=== PATIENT | female | born 1940 | race Caucasian/White ===

== ENCOUNTER 2016-12-16 07:10 | Emergency (ER) | payer OTHER ==
--- NOTE | 2016-12-16 07:29 | CPEKG ---
Heart Rate: 96 RR Interval: 625 P-R Interval: 212 QRSD Interval: 92 QT Interval: 376 QTC Interval: 476 P Munising: 83 QRS Munising: -37 T Wave Mun[place]: 55 EKG Severity - ABNORMAL ECG - EKG Impression: SINUS RHYTHM EKG Impression: RIGHT ATRIAL ABNORMALITY EKG Impression: LEFT AXIS DEVIATION Electronically Signed By: Ernie Glass 16-Dec-2016 08:42:58
[2016-12-16] MEDS ORDERED: NS 1,000 ML IV ONE (07:41)
--- NOTE | 2016-12-16 07:57 | EDPHY ---
H & P Time Seen by Provider: 12/16/16 07:22 HPI/ROS: CHIEF COMPLAINT: I feel hot HISTORY OF PRESENT ILLNESS: Patient presents with symptoms which started yesterday morning. She feels hot and itchy and flush and symptoms are mild and persistent. Of note she was treated with mupirocin cream for boils in her nose 2 and half weeks ago which have improved. She has history of MRSA on her skin but no skin lesions today. No fever or chills. No change in urinary symptoms. No vomiting or diarrhea. No syncope. REVIEW OF SYSTEMS: Eye: no change in vision ENT: no sore throat, nose is improved Cardiac: no chest pain or syncope Pulmonary: no cough or SOB Abdomen: no vomiting, diarrhea, abdominal pain Musculoskeletal: no back pain Skin: She feels that maybe she is a little bit redder no skin but no welts or urticaria. Neuro: no headache Constitutional: no fever : no urinary symptoms A comprehensive 10 point review of systems is otherwise negative aside from elements mentioned in the history of present illness. PAST MEDICAL HISTORY: As in HPI. History of shingles. Social history: here with General Appearance: Alert and conversant, cooperative. Eyes: No scleral icterus. Nose appears normal without evidence of boils or skin lesions. Normal pharynx without angioedema. ENT, Mouth: Normal mucous membranes. Respiratory: Normal respiratory effort, breath sounds equal, lungs are clear to auscultation. No wheezing Cardiovascular: Regular rate and rhythm. Gastrointestinal: Abdomen is soft and non tender. Neurological: Alert and oriented x3. Normally conversant. Face symmetric, normal movement and sensation in all extremities. Skin: Warm and dry, no rashes. No Shingles, no urticaria, no cellulitis. Musculoskeletal: No peripheral edema and no joint swelling. Psychiatric: Not agitated. Emergency Department course/MDM: Symptoms suggestive of allergic phenomenon. Does not have airway involvement. I think systemic MRSA or bacteremia is unlikely. 0835: Heart rate 80, less itchy. White blood cell count noted is normal. Plan to treat as possible allergic, discontinue mupirocin, trial oral Benadryl next 48 hours. Smoking Status: Never smoked Constitutional: Initial Vital Signs Temperature (C) 36.3 C 12/16/16 07:14 Heart Rate 108 H 12/16/16 07:14 Respiratory Rate 20 12/16/16 07:14 Blood Pressure 146/65 H 12/16/16 07:14 O2 Sat (%) 96 12/16/16 07:14 O2 Delivery Mode Room Air O2 (L/minute) 0.5 Allergies/Adverse Reactions: Sulfa (Sulfonamide Antibiotics) Allergy (Verified 12/16/16 07:13) Home Medications: Medication Instructions Recorded Vitamins And Supplements 12/16/16 Medical Decision Making - Diagnostics EKG Interpretation: 12-lead EKG interpreted by me; official reading is in trace master. My interpretation is sinus rhythm with right atrial abnormality and left axis, normal intervals. Differential Diagnosis: Differential considered including but not limited to bacteremia, allergic phenomenon, renal failure, dehydration. - Data Points Laboratory Results: Laboratory Results 12/16/16 08:15 12/16/16 08:15 12/16/16 12/16/16 08:15 08:15 WBC 4.94 10^3/uL 10^3/uL (3.80-9.50) RBC 4.38 10^6/uL 10^6/uL (4.18-5.33) Hgb 14.5 g/dL g/dL (12.6-16.3) Hct 42.1 % % (38.0-47.0) MCV 96.1 fL fL (81.5-99.8) MCH 33.1 pg pg (27.9-34.1) MCHC 34.4 g/dL g/dL (32.4-36.7) RDW 14.4 % % (11.5-15.2) Plt Count 282 10^3/uL 10^3/uL (150-400) MPV 9.4 fL fL (8.7-11.7) Neut % (Auto) 54.9 % % (39.3-74.2) Lymph % (Auto) 32.4 % % (15.0-45.0) [place] % (Auto) 9.3 % % (4.5-13.0) Eos % (Auto) 2.0 % % (0.6-7.6) Baso % (Auto) 1.2 % % (0.3-1.7) Nucleat RBC Rel Count 0.0 % % (0.0-0.2) Absolute Neuts (auto) 2.71 10^3/uL 10^3/uL (1.70-6.50) Absolute Lymphs (auto) 1.60 10^3/uL 10^3/uL (1.00-3.00) Absolute Monos (auto) 0.46 10^3/uL 10^3/uL (0.30-0.80) Absolute Eos (auto) 0.10 10^3/uL 10^3/uL (0.03-0.40) Absolute Basos (auto) 0.06 10^3/uL 10^3/uL (0.02-0.10) Absolute Nucleated RBC 0.00 10^3/uL 10^3/uL (0-0.01) Immature Gran % 0.2 % % (0.0-1.1) Immature Gran # 0.01 10^3/uL 10^3/uL (0.00-0.10) Sodium 144 mEq/L mEq/L (134-144) Potassium 4.1 mEq/L mEq/L (3.5-5.2) Chloride 108 mEq/L mEq/L (97-110) Carbon Dioxide 23 mEq/l mEq/l (22-31) Anion Gap 13 mEq/L mEq/L (8-16) BUN 16 mg/dL mg/dL (7-23) Creatinine 0.8 mg/dL mg/dL (0.6-1.0) Estimated GFR > 60 Glucose 86 mg/dL mg/dL (70-100) Calcium 10.1 mg/dL mg/dL (8.5-10.4) Medications Given: Discontinued Medications Diphenhydramine HCl (Benadryl Injection) 50 mg IVP EDNOW ONE Stop: 12/16/16 07:42 Last Admin: 12/16/16 08:18 Dose: 50 mg Sodium Chloride (Ns) 1,000 mls @ 0 mls/hr IV ONCE ONE PRN Reason: Wide Open Stop: 12/16/16 07:42 Last Admin: 12/16/16 08:18 Dose: 1,000 mls Departure - Departure Disposition: Home, Routine, Self-Care Clinical Impression: Generalized pruritus, possible allergic reaction Condition: Good Instructions: Itchy Skin (ED) Additional Instructions: Try using oral Benadryl 50 mg every 8 hours as needed. Return for trouble breathing, dizziness or fainting, trouble swallowing or facial swelling. Referrals: Chaya Carreno MD [Primary Care Provider] - As per Instructions
[2016-12-16 08:21] VITALS: O2SAT 97
[2016-12-16 08:25] LABS: % IMMATURE GRANULYOCYTES 0.2 % (0.0-1.1); ABSOLUTE IMMATURE GRANULOCYTES 0.01 10^3/uL (0.00-0.10); ADD DIFF? NO; ADD MORPH? NO; ADD SCAN? NO; ATYPICAL LYMPHOCYTE FLAG 30 (0-99); FRAGMENT RBC FLAG 0 (0-99); HEMATOCRIT 42.1 % (38.0-47.0); HEMOGLOBIN 14.5 g/dL (12.6-16.3); LEFT SHIFT FLG 0 (0-99); LIPEMIA HEMOLYSIS FLAG 90 (0-99); MEAN CELL HEMOGLOBIN 33.1 pg (27.9-34.1); MEAN CELL HEMOGLOBIN CONCENTR. 34.4 g/dL (32.4-36.7); MEAN CELL VOLUME 96.1 fL (81.5-99.8); MEAN PLATELET VOLUME 9.4 fL (8.7-11.7); PLATELET CLUMPS FLAG 0 (0-99); PLATELET COUNT 282 10^3/uL (150-400); RED BLOOD CELL COUNT 4.38 10^6/uL (4.18-5.33); RED CELL DISTRIBUTION WIDTH 14.4 % (11.5-15.2)
[2016-12-16 08:43] LABS: ANION GAP 13 mEq/L (8-16); CALCIUM 10.1 mg/dL (8.5-10.4); CARBON DIOXIDE 23 mEq/l (22-31); CHLORIDE 108 mEq/L (97-110); CREATININE 0.8 mg/dL (0.6-1.0); GLOMERULAR FILTRATION RATE > 60; GLUCOSE 86 mg/dL (70-100); POTASSIUM 4.1 mEq/L (3.5-5.2); SODIUM 144 mEq/L (134-144)
[2016-12-16 08:52] VITALS: BP 132/78; PULSE 78; RESP 14; TEMP 98.8
== END 2016-12-16 08:51 | disposition home or self-care (01) ==
DX: L29.9 Pruritus, unspecified (principal)
CPT/HCPCS: 93005; 96361; 96374; 99284; J1200

== ENCOUNTER 2017-01-05 11:06 | Emergency (ER) | payer OTHER ==
[2017-01-05 11:41] VITALS: O2SAT 95
[2017-01-05] MEDS ORDERED: FAMOTIDINE 20 MG TAB PO ONE (12:14)
--- NOTE | 2017-01-05 12:14 | EDPHY ---
H & P Time Seen by Provider: 01/05/17 11:36 HPI/ROS: CHIEF COMPLAINT: Itchy skin HISTORY OF PRESENT ILLNESS: 76-year-old female presents to the emergency department by private vehicle complaining of itchy skin. The patient states that for o'clock this morning she woke up and she fell itching to her scalp and to upper lower extremities. She felt like her face felt flushed and was read. She had no treatment at home. She states that it has mostly resolved although she continues to complain of itching especially to her scalp in her upper extremities. She was seen in the emergency department 3 weeks ago with similar symptoms. She was treated with IV Benadryl and her symptoms completely resolved. Patient is concerned because she does not know what is causing the itchiness. She does state that she was treated for an infection in her nose that was positive for MRSA. She treated this with topical Bactroban ointment and her symptoms have resolved. Her last use of this appointment was for 5 days ago. She denies chest pain or difficulty breathing. Denies abdominal pain or feeling nauseous. Denies headache. REVIEW OF SYSTEMS: Constitutional: No fever, no chills. Eyes: No double or blurry vision. ENT: No sore throat. Respiratory: No cough, no shortness of breath. Cardiac: No chest pain. Gastrointestinal: No abdominal pain, vomiting or diarrhea. Genitourinary: No dysuria. Musculoskeletal: No neck or back pain. Skin: Itchy rash Neurological: No headache. Past Medical/Surgical History: MRSA, zoster Social History: Smoking Status: Never smoked Physical Exam: General Appearance: Alert, no distress. Seems a bit anxious. Eyes: Pupils equal and round. Extraocular motions are all intact. ENT: Mouth: Mucous membranes moist. Respiratory: No wheezing, rhonchi, or rales, lungs are clear to auscultation. Cardiovascular: Regular rate and rhythm. Gastrointestinal: Abdomen is soft and nontender, no masses, no rebound or guarding, bowel sounds normal. Neurological: Alert and oriented x 3, cranial nerves II through XII grossly intact Skin: Face does not appear red or flushed. Warm and dry, no rashes. Musculoskeletal: Nontender to palpate along the cervical, thoracic or lumbar spine. Neck is supple. Extremities: Full range of motion and no peripheral edema. Psychiatric: Patient is oriented X 3, there is no agitation. Constitutional: Initial Vital Signs Temperature (C) 36.4 C 01/05/17 11:29 Heart Rate 98 01/05/17 11:29 Respiratory Rate 18 01/05/17 11:29 Blood Pressure 173/88 H 01/05/17 11:29 O2 Sat (%) 95 01/05/17 11:29 O2 Delivery Mode Room Air Allergies/Adverse Reactions: Sulfa (Sulfonamide Antibiotics) Allergy (Verified 12/16/16 07:13) Home Medications: Medication Instructions Recorded Vitamins And Supplements 12/16/16 Doxycycline Calcium 01/05/17 Mupirocin 01/05/17 Medical Decision Making ED Course/Re-evaluation: 76-year-old female presents to the emergency department with feelings of itchy skin. The patient was seen in the emergency department 3 weeks ago with similar symptoms improved after IV Benadryl. The patient denies any chest pain , difficulty breathing or dysphagia. I do not appreciate an obvious rash. I did discuss possible niacin flush with the patient although she states that she does not take niacin and her has experienced a niacin flush before and she feels that this is different. I reassured the patient that I do not think that she has any signs of systemic infection. I did not give the patient oral Benadryl in the emergency department because she was driving herself home. She was given oral Pepcid for the itching. I do not think prednisone is indicated. I did give her an manager equipment to the [facility] for referral if she has recurring symptoms. I also encouraged her return if she developed difficulty breathing, difficulty swallowing, or any other concerns. Differential Diagnosis: Including but not limited to allergic reaction, pruritic rash, cellulitis, niacin flush, anxiety - Data Points Medications Given: Discontinued Medications Famotidine (Pepcid) 20 mg PO EDNOW ONE Stop: 01/05/17 12:15 Last Admin: 01/05/17 12:25 Dose: 20 mg Departure - Departure Disposition: Home, Routine, Self-Care Clinical Impression: Itchy skin Condition: Good Instructions: Itchy Skin (ED) Additional Instructions: Benadryl 25-50mg every 8 hours for itching, caution drowsiness. Return if you have any difficulty breathing, difficulty swallowing, visible rash, or if you feel worse in any way. Your given Pepcid 20 mg orally in the emergency department. You may continue this once daily until itchiness and rash has resolved. Referrals: Chaya Carreno MD [Primary Care Provider] - As per Instructions Luisa Gustafson MD [[facility] [place] Primary Care Provider] - As per Instructions (Reservation Manager at [facility])
[2017-01-05 13:11] VITALS: BP 130/74; PULSE 82; RESP 16; TEMP 98.2
== END 2017-01-05 13:11 | disposition home or self-care (01) ==
DX: L29.9 Pruritus, unspecified (principal)

== ENCOUNTER → 2017-01-25 | Outpatient (CLI) | payer OTHER | LOC: BMCIMAGING 10:35 | PROVIDERS: ATTEND Allergy & Immunology Allergy | DX: T78.40XA Allergy, unspecified, initial encounter (principal) ==

== ENCOUNTER → 2017-02-15 | Outpatient (CLI) | payer OTHER | LOC: FIMAGING 15:16 | PROVIDERS: ATTEND Internal Medicine | DX: H93.12 Tinnitus, left ear (principal); H54.7 Unspecified visual loss ==

== ENCOUNTER → 2017-02-18 | Outpatient (CLI) | payer OTHER | LOC: BMCIMAGING 10:00 | PROVIDERS: ATTEND Internal Medicine | DX: Z13.820 Encounter for screening for osteoporosis (principal); M85.80 Other specified disorders of bone density and structure, unspecified site; Z78.0 Asymptomatic menopausal state ==

== ENCOUNTER → 2017-05-03 | Outpatient (CLI) | payer OTHER | LOC: BMCIMAGING 12:24 | PROVIDERS: ATTEND Allergy & Immunology Allergy | DX: Z13.6 Encounter for screening for cardiovascular disorders (principal) ==

== ENCOUNTER → 2017-06-11 | Outpatient (CLI) | payer OTHER ==
[~2017-06-11] MED LIST: IOPAMIDOL (ISOVUE-300) 100 ML BTL ONE
== END ==
LOC: FIMAGING 07:21
PROVIDERS: ATTEND Allergy & Immunology Allergy
DX: R91.1 Solitary pulmonary nodule (principal); R91.8 Other nonspecific abnormal finding of lung field; R22.1 Localized swelling, mass and lump, neck; I87.2 Venous insufficiency (chronic) (peripheral)
CPT/HCPCS: 71260; 74177; 76536; Q9967

== ENCOUNTER → 2017-06-30 | Outpatient (CLI) | payer OTHER | LOC: FIMAGING 13:52 | PROVIDERS: ATTEND Internal Medicine | DX: H93.12 Tinnitus, left ear (principal); M47.892 Other spondylosis, cervical region; M50.30 Other cervical disc degeneration, unspecified cervical region; M12.88 Other specific arthropathies, not elsewhere classified, other specified site; M48.02 Spinal stenosis, cervical region; M99.71 Connective tissue and disc stenosis of intervertebral foramina of cervical region | CPT/HCPCS: 70491; Q9967 ==

== ENCOUNTER → 2017-07-11 | Outpatient (CLI) | payer OTHER | LOC: FIMAGING 07:22 | PROVIDERS: ATTEND Internal Medicine | DX: M51.36 Other intervertebral disc degeneration, lumbar region (principal); M48.061 Spinal stenosis, lumbar region without neurogenic claudication; M99.73 Connective tissue and disc stenosis of intervertebral foramina of lumbar region ==

== ENCOUNTER → 2017-07-16 | Outpatient (CLI) | payer OTHER | LOC: FIMAGING 07:09 | PROVIDERS: ATTEND Internal Medicine | DX: Z13.9 Encounter for screening, unspecified (principal) ==

== ENCOUNTER → 2017-08-17 | Outpatient (CLI) | payer OTHER | LOC: FIMAGING 12:57 | PROVIDERS: ATTEND Neurological Surgery | DX: Z01.818 Encounter for other preprocedural examination (principal) ==

== ENCOUNTER → 2017-10-13 | Outpatient (CLI) | payer OTHER | LOC: BMCIMAGING 11:52 | PROVIDERS: ATTEND Internal Medicine | DX: R07.9 Chest pain, unspecified (principal); R91.8 Other nonspecific abnormal finding of lung field ==

== ENCOUNTER → 2017-10-26 | Outpatient (CLI) | payer OTHER | LOC: FIMAGING 07:40 | PROVIDERS: ATTEND Internal Medicine | DX: R91.8 Other nonspecific abnormal finding of lung field (principal) ==

== ENCOUNTER 2017-11-20 07:23 | Emergency (ER) | payer OTHER ==
[2017-11-20 07:32] VITALS: BP 156/101; PULSE 96; RESP 17; TEMP 97.3; O2SAT 97
--- NOTE | 2017-11-20 08:10 | EDPHY ---
H & P Stated Complaint: ? 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 Patient complaining of 1 year of itching, rash for which she follows Maira Gustafson which she soft recently 2 days ago as she notes that the symptoms have been waxing waning for the past 5 days, notably she will feel intermittently flushed not currently in the emergency department. She is in the ER stating that she would like to feel better and no why she is having the symptoms. It was recommended by Dr. Luisa Gustafson her office visit 2 days ago that she stop her citalopram, was given a new prednisone regimen as well as Benadryl 50 mg every 8 hr, Zyrtec 10 mg in the morning and will proceed with allergy testing in 2 weeks. The patient notes new cracking of her lower lip but denies intraoral lesions. She notes ongoing irritation to her external labia without lesions, without urinary abnormality. She denies GI complaints such as diarrhea, denies vomiting , denies ocular irritation. REVIEW OF SYSTEMS: A ten point review of systems was performed and is negative with the exception of the items mentioned in the HPI PAST MEDICAL & SURGICAL HISTORY: No pertinent medical or surgical history SOCIAL HISTORY: PHYSICAL EXAM (Prior to examination, patient consented to physical exam, hands were washed and my usual and customary physical exam procedures followed) 1) GENERAL: [Well-developed, well-nourished, alert and oriented. Appears to be in no acute distress. Answering question appropriately 2) HEAD: Normocephalic, atraumatic 3) HEENT: Pupils equal, round, reactive to light bilaterally. Sclera anicteric. [Nasopharynx clear. Oropharynx: Fissures of the lower lip with no lesions. No tonsillar enlargement or exudate 4) NECK: Full range of motion, no meningeal signs. 5) LUNGS: Clear auscultation bilaterally, no wheezes, no rhonchi, no retractions. 6) HEART: Regular rate and rhythm, no murmur, no heave, no gallop. 7) ABDOMEN: No guarding, no rebound, no focal tenderness, negative McBurney's, negative Lynch's, negative Rovsing's, negative peritoneal sign, 8) MUSCULOSKELETAL: Moving all extremities, no focal areas of tenderness, no obvious trauma. No peripheral edema or discoloration. 9) BACK: No CVA tenderness, no midline vertebral tenderness, no fluctuance, no step-off, no obvious trauma, no visual or palpable abnormality. 10) SKIN: Mild flat erythema to her bilateral cheeks with no vesicles, no tenderness, not consistent with cellulitis. 11) Psychiatric: Patient is oriented X 3, there is no agitation. 12) (with nurse Tameka at bedside): No lesions, no erythema, no signs of infection DIFFERENTIAL DIAGNOSIS: In no particular include but limited to urticaria, Cruz-Kevin syndrome, anaphylaxis - Personal History Current Tetanus/Diphtheria Vaccine: Yes - Medical/Surgical History Hx Asthma: No Hx Chronic Respiratory Disease: No Hx Diabetes: No Hx Cardiac Disease: No Hx Renal Disease: No Hx Cirrhosis: No Hx Alcoholism: No Hx HIV/AIDS: No Hx Splenectomy or Spleen Trauma: No Other PMH: PMH: MRSA 2x, shingles,. PSH: denies - Social History Smoking Status: Never smoked Constitutional: Initial Vital Signs Temperature (C) 36.3 C 11/20/17 07:29 Heart Rate 96 11/20/17 07:29 Respiratory Rate 17 11/20/17 07:29 Blood Pressure 156/101 H 11/20/17 07:29 O2 Sat (%) 97 11/20/17 07:29 O2 Delivery Mode Room Air Allergies/Adverse Reactions: Sulfa (Sulfonamide Antibiotics) Allergy (Verified 11/20/17 07:28) Contrast media Allergy (Uncoded 07/01/17 18:57) Home Medications: Medication Instructions Recorded Prednisone 11/20/17 ZYRTEC 11/20/17 Medical Decision Making ED Course/Re-evaluation: This was re-evaluated with serial examinations and case discussed with secondary supervising physician Dr. Ernie Glass in the emergency department. Old records were reviewed including most recent notes from Dr. Luisa Gustafson which patient brought with her from her last office visit 2 days ago. The patient has expressed her frustration at her ongoing symptoms for the past several months to 1 year and I empathized with this. She was concerned about irritation and fissuring of her lower lip, she expressed her concern over possible MRSA noting a cutaneous MRSA history in the past. The fissuring of the lower lip is not consistent with cutaneous MRSA or infectious etiology.. I do not think that topical or oral antibiotics are currently indicated. I have recommended topical moisturizer to this area and avoid leaking or picking at the area. She has no intraoral lesions. She also noted ongoing irritation to her labia which on examination reveal no lesions, no evidence of cellulitis. I think that Cruz-Kevin syndrome is less likely in this patient at this time. Doubt anaphylaxis. She is currently compliant with her medication regimen of H1 H2 blockers as well as prednisone as directed by Dr. Luisa Gustafson and I recommend she continue this. Doubt anaphylaxis. After a lengthy discussion with the patient patient with her nurse Tameka at bedside the patient was tearful and expressed her dissatisfaction with not receiving a clinical diagnosis or a "cure". I empathized with her chronic condition. Informed the patient that I do not think that emergent diagnostic studies or intervention is indicated but recommend she continue with her follow- up with Dr. Luisa Gustafson. Patient walked out without receiving aftercare instructions. Departure - Departure Disposition: Home, Routine, Self-Care Clinical Impression: Rash, Itching Condition: Good Instructions: Itchy Skin (ED) Additional Instructions: Return to emergency department if you develop respiratory complaints such as shortness of breath. Return to the ER if you develop chest pain, difficulty swallowing, worsening rash or other symptoms that concern you. Referrals: Luisa Gustafson MD [[facility] [place] Provider] - 11/23/17
== END 2017-11-20 08:40 | disposition home or self-care (01) ==
DX: R21 Rash and other nonspecific skin eruption (principal); L29.9 Pruritus, unspecified

== ENCOUNTER → 2017-11-23 | Outpatient (CLI) | payer OTHER ==
[~2017-11-23] MED LIST changes: +GADOBUTROL 10 ML VIAL IVP ONE; -IOPAMIDOL (ISOVUE-300) 100 ML BTL ONE
== END ==
LOC: FIMAGING 09:28
PROVIDERS: ATTEND Internal Medicine
DX: R93.0 Abnormal findings on diagnostic imaging of skull and head, not elsewhere classified (principal); R51 Headache; R20.2 Paresthesia of skin; R25.1 Tremor, unspecified; R29.2 Abnormal reflex
CPT/HCPCS: 70553; A9585

== ENCOUNTER 2017-12-11 06:09 | Observation (INO) | payer OTHER ==
--- NOTE | 2017-12-11 06:21 | CPEKG ---
Heart Rate: 86 RR Interval: 698 P-R Interval: 184 QRSD Interval: 90 QT Interval: 392 QTC Interval: 469 P Andrews: 83 QRS Andrews: -65 T Wave Andrews: 66 EKG Severity - ABNORMAL ECG - EKG Impression: SINUS RHYTHM EKG Impression: RIGHT ATRIAL ABNORMALITY EKG Impression: MARKEDLY POSTERIOR QRS AXIS EKG Impression: BORDERLINE T ABNORMALITIES, ANT-LAT LEADS Electronically Signed By: Ernie Glass 11-Dec-2017 07:40:24
[2017-12-11] MEDS ORDERED: ASPIRIN 81 MG CHEWABLE TAB PO ONE (06:25)
[2017-12-11] MEDS ORDERED: ASPIRIN 81 MG CHEWABLE TAB ONE (06:26)
[2017-12-11 06:32] LABS: PLATELET COUNT 271 10^3/uL (150-400)
--- NOTE | 2017-12-11 06:38 | EDPHY ---
H & P Stated Complaint: Sleep apnea, chest pain Time Seen by Provider: 12/11/17 06:16 HPI/ROS: HPI The patient presents brought in from home for chest pain which began at about 4: 30 a.m.. She was lying in bed and believes that the pain woke her up. She was in her left chest, felt like a pressure sensation, was moderate in severity and was associated with mild dizziness. It lasted for about 1 hr and then improved while she was driving into emergency department she leaves. She has no prior history of similar pain. She has had occasional shortness of breath at night. She had a sleep study performed about 1 week ago which demonstrated sleep apnea. She is awaiting a CPAP machine. She took a flight from [place] to [place] 4 days ago. She has a leg swelling. She had a cardiac stress test about 2 years ago which was normal. REVIEW OF SYSTEMS Constitutional: No fever, no chills. Eyes: No discharge. ENT: No sore throat. Cardiovascular: Positive for chest pain, no palpitations. Respiratory: No cough, no shortness of breath. Gastrointestinal: No abdominal pain, no vomiting. Genitourinary: No hematuria. Musculoskeletal: No back pain. Skin: No rashes. Neurological: No headache. PMHx: Newly diagnosed obstructive sleep apnea Soc Hx: Lives at home with her FHx: PHYSICAL General Appearance: Alert, no distress Eyes: Pupils equal and round no pallor or injection ENT, Mouth: Mucous membranes moist Respiratory: There are no retractions, lungs are clear to auscultation Cardiovascular: Regular rate and rhythm Gastrointestinal: Abdomen is soft and non-tender, no masses, bowel sounds normal Neurological: A&O, moves all extremities Skin: Warm and dry, no rashes Musculoskeletal: Neck is supple non tender Extremities: symmetrical, full range of motion Psychiatric: Patient is oriented X 3, there is no agitation Source: Patient Exam Limitations: No limitations - Personal History Current Tetanus Diphtheria and Acellular Pertussis (TDAP): Yes - Medical/Surgical History Hx Asthma: No Hx Chronic Respiratory Disease: No Hx Diabetes: No Hx Cardiac Disease: No Hx Renal Disease: No Hx Cirrhosis: No Hx Alcoholism: No Hx HIV/AIDS: No Hx Splenectomy or Spleen Trauma: No Other PMH: PMH: MRSA 2x, shingles,. PSH: denies - Social History Smoking Status: Never smoked Constitutional: Initial Vital Signs Temperature (C) 36.4 C 12/11/17 06:14 Heart Rate 88 12/11/17 06:14 Respiratory Rate 18 12/11/17 06:14 Blood Pressure 164/81 H 12/11/17 06:14 O2 Sat (%) 99 12/11/17 06:14 O2 Delivery Mode Room Air Allergies/Adverse Reactions: Sulfa (Sulfonamide Antibiotics) Allergy (Verified 12/11/17 06:10) Contrast media Allergy (Uncoded 12/11/17 06:10) Home Medications: Medication Instructions Recorded Prednisone 11/20/17 ZYRTEC 11/20/17 Medical Decision Making - Diagnostics EKG Interpretation: EKG: Complete interpretation has been separately recorded in the [email or web address] archive. Summary impression: Normal sinus rhythm with left axis deviation, T- wave inversion in aVL, V2, unchanged from prior EKG Differential Diagnosis: 77-year-old female, recently diagnosed with obstructive sleep apnea, awoke with chest pain this morning at 4:30 a.m., pressure like nature associated with dizziness. On exam, slightly hypertensive, otherwise vital signs are normal. Differential diagnosis includes ACS, pulmonary hypertension causing chest pain, pulmonary embolism, GERD. Emergency department much in received abdomen 324 mg. EKG was unchanged from old EKG from 1 year ago. Patient's HEART score calculated at 4. I do feel she should be admitted. Her labs thus far unremarkable. D-dimer is elevated, however adjusting for age this is the norm limits. I have discussed the case with Dr. Delvalle the hospitalist and we will admit the patient for monitoring. - Data Points Laboratory Results: Laboratory Results 12/11/17 06:29 12/11/17 06:29 12/11/17 12/11/17 12/11/17 06:30 06:29 06:29 WBC 4.89 10^3/uL 10^3/uL (3.80-9.50) RBC 4.48 10^6/uL 10^6/uL (4.18-5.33) Hgb 14.6 g/dL g/dL (12.6-16.3) Hct 42.7 % % (38.0-47.0) MCV 95.3 fL fL (81.5-99.8) MCH 32.6 pg pg (27.9-34.1) MCHC 34.2 g/dL g/dL (32.4-36.7) RDW 14.6 % % (11.5-15.2) Plt Count 271 10^3/uL 10^3/uL (150-400) MPV 9.4 fL fL (8.7-11.7) Neut % (Auto) 46.3 % % (39.3-74.2) Lymph % (Auto) 40.5 % % (15.0-45.0) [place] % (Auto) 10.0 % % (4.5-13.0) Eos % (Auto) 2.2 % % (0.6-7.6) Baso % (Auto) 0.8 % % (0.3-1.7) Nucleat RBC Rel Count 0.0 % % (0.0-0.2) Absolute Neuts (auto) 2.26 10^3/uL 10^3/uL (1.70-6.50) Absolute Lymphs (auto) 1.98 10^3/uL 10^3/uL (1.00-3.00) Absolute Monos (auto) 0.49 10^3/uL 10^3/uL (0.30-0.80) Absolute Eos (auto) 0.11 10^3/uL 10^3/uL (0.03-0.40) Absolute Basos (auto) 0.04 10^3/uL 10^3/uL (0.02-0.10) Absolute Nucleated RBC 0.00 10^3/uL 10^3/uL (0-0.01) Immature Gran % 0.2 % % (0.0-1.1) Immature Gran # 0.01 10^3/uL 10^3/uL (0.00-0.10) D-Dimer 0.60 ug/mLFEU H ug/mLFEU (0.00-0.50) Sodium 146 mEq/L H mEq/L (135-145) Potassium 4.0 mEq/L mEq/L (3.5-5.2) Chloride 111 mEq/L H mEq/L (97-110) Carbon Dioxide 27 mEq/l mEq/l (22-31) Anion Gap 8 mEq/L mEq/L (8-16) BUN 17 mg/dL mg/dL (7-23) Creatinine 0.8 mg/dL mg/dL (0.6-1.0) Estimated GFR > 60 Glucose 88 mg/dL mg/dL (70-100) Calcium 10.1 mg/dL mg/dL (8.5-10.4) Troponin I < 0.012 ng/mL ng/mL (0.000-0.034) Medications Given: Discontinued Medications Aspirin (Aspirin) 324 mg PO EDNOW ONE Stop: 12/11/17 06:26 Last Admin: 12/11/17 06:26 Dose: 324 mg Departure - Departure Referrals: Chaya Carreno MD [Primary Care Provider] - As per Instructions
[2017-12-11 08:23] VITALS: O2SAT 97
[2017-12-11] MEDS ORDERED: ACETAMINOPHEN 325 MG TAB PO PRN (08:46)
[2017-12-11] MEDS ORDERED: ONDANSETRON 4 MG/2 ML VIAL IVP PRN (08:46)
[2017-12-11] MEDS ORDERED: ONDANSETRON DISINTEGRATING 4 MG TAB PO PRN (08:46)
[2017-12-11 10:59] VITALS: BP 110/54; PULSE 82; RESP 12; TEMP 97.9
--- NOTE | 2017-12-11 14:29 | ASMTLACE ---
LACE Length of stay for Answers: Less than 1 day current admission Acuity / Level of Answers: No Care: Did the patient have an inpatient admission? # of Emergency department Answers: 1-2 visits in the last 6 months Score: 1 Date Signed: 12/11/2017 02:28 PM Electronically Signed By:Cassia Matos RN
--- NOTE | 2017-12-11 14:30 | ASMTCMCOM ---
CM Note CM Note Notes: Patient discussed with RN. Likely to dc later this PM. No needs identified at present. Date Signed: 12/11/2017 02:30 PM Electronically Signed By:Cassia Matos RN
--- NOTE | 2017-12-11 14:37 | GHP ---
[f rep st] HISTORY AND PHYSICAL DATE OF ADMISSION: 12/11/2017 CHIEF COMPLAINT: Chest pain. HISTORY OF PRESENT ILLNESS: This is a 77-year-old female with no cardiac risk factors, who woke up t his morning with chest pain. She does not say it was pressure, but more of a pain. Not associated w ith shortness of breath or diaphoresis. It resolved by the time she came to the emergency department . It did last about an hour. Did have some dizziness. She has been admitted to the floor and has h ad no pain since. The patient recently came back from [facility], where she was diagnosed with significant sleep apnea . At the clinic, her nighttime sats would go down to 77%. She is still awaiting her CPAP machine an d has not been using it. Patient admits to significant anxiety recently and stress. REVIEW OF SYSTEMS: A 10-point review of systems was obtained and was negative. PAST MEDICAL HISTORY: Obstructive sleep apnea. MEDICATIONS: None. SOCIAL HISTORY: No smoking or alcohol. Lives with her . FAMILY HISTORY: No cardiac disease. PHYSICAL EXAMINATION: VITAL SIGNS: Afebrile. Blood pressure is 110/54, heart rate 82, oxygen satur ation 95% on room air. GENERAL: The patient is well-developed, no apparent distress. HEENT: Nonic teric sclerae. Extraocular movements intact. Moist mucous membranes. NECK: Supple. No thyromegal y. LUNGS: Good effort. Clear to auscultation bilaterally. CARDIOVASCULAR: Regular rate and rhyth m. No murmurs or gallops. ABDOMEN: Positive bowel sounds. Soft, nontender, nondistended. No hepa tosplenomegaly. EXTREMITIES: No clubbing, cyanosis or edema. SKIN: Without rash. Warm, intact. NEUROLOGIC: Alert and oriented x3. Moving all 4 extremities equally. PSYCHIATRIC: Normal affect. LABS: CBC is normal. D-dimer slightly high at 0.6, but it is normal for her age. Chemistry is esse ntially normal. Troponins have been negative x2. EKG, personally reviewed and interpreted, shows some slight T-wave flattening in the anterior leads, but no ischemia. Chest x-ray, personally reviewed and interpreted, is negative. ASSESSMENT: A 77-year-old female presenting with no cardiac risk factors and atypical chest pain. Atypical chest pain: Troponins are negative times 2. Pain could very well be due to her untreated o bstructive sleep apnea. Fortunately though, her CPAP machine has arrived today, and she will be able to use that tonight. Her troponins are negative, and she does have minimal risk factors with atypic al pain. I think it is reasonable to discharge her with instructions to get stress test outpatient t his week. /[id number]/MODL
== END 2017-12-11 14:55 | disposition home or self-care (01) ==
LOC: F2W 08:19
PROVIDERS: ADMIT Family Medicine; ATTEND Internal Medicine
DX: R07.9 Chest pain, unspecified (principal); G47.33 Obstructive sleep apnea (adult) (pediatric); Z86.14 Personal history of Methicillin resistant Staphylococcus aureus infection; Z88.2 Allergy status to sulfonamides
CPT/HCPCS: 71045; 93005; G0378

== ENCOUNTER 2018-01-16 06:51 | Emergency (ER) | payer OTHER ==
[2018-01-16] MEDS ORDERED: IPRATROPIUM/ALBUTEROL 3 ML DEYVIAL IH ONE (07:25)
--- NOTE | 2018-01-16 07:30 | EDPHY ---
H & P Time Seen by Provider: 01/16/18 07:20 HPI/ROS: CHIEF COMPLAINT: Cough HISTORY OF PRESENT ILLNESS: Patient is a 77-year-old female who presents emergency department with 7-8 days of cold and cough. Patient returned home yesterday after 30 day trip abroad. She was in [place], [place], [place] and [place]. Her condition worsened after her extended travel day home. Her symptoms started with a head cold and congestion. She developed a cough that is worsened. It is productive of green sputum. She feels mildly short of breath. She has had no fevers or chills. She denies any chest pain. No abdominal pain. No nausea, vomiting or diarrhea. The patient took a Z-Steven 5 days ago in this completed the entire course. Condition is not changed. She brought these medications with her on the trip. REVIEW OF SYSTEMS: My complete review of systems is negative except as mentioned in the HPI. Past Medical/Surgical History: Includes shingles, obstructive sleep apnea, MRI say Past surgical history: See 3 surgery Social history: The patient is Smoking Status: Never smoked Physical Exam: Vitals noted GENERAL: No acute distress, alert. Occasional cough HEENT: Eyes normal to inspection, normal pharynx, no signs of dehydration. Normal NECK: No thyromegaly, no lymphadenopathy, supple. RESPIRATORY: Clear to auscultation bilaterally, no rales, rhonchi. Subtle wheeze in the upper lobes bilaterally. CVS: Regular rate and rhythm, no rubs, murmurs, or gallops. ABDOMEN: Soft, nontender, nondistended, no organomegaly. BACK: Normal to inspection, no CVA tenderness. SKIN: Normal color, no rash, warm, dry. No pallor. EXTREMITIES: No pedal edema, no calf tenderness, no Homans sign or cords, no joint swelling. NEURO/PSYCH: Alert and oriented x3, normal mood and affect, normal motor sensory exam. No obvious cranial nerve deficit. Constitutional: Initial Vital Signs Temperature (C) 36.8 C 01/16/18 06:54 Heart Rate 92 01/16/18 06:54 Respiratory Rate 18 01/16/18 06:54 Blood Pressure 165/76 H 01/16/18 06:54 O2 Sat (%) 96 01/16/18 06:54 O2 Delivery Mode Room Air Allergies/Adverse Reactions: cyanocobalamin (vitamin B12) Allergy (Unknown, Verified 01/16/18 06:54) Hives bacitracin Allergy (Verified 01/16/18 06:54) Sulfa (Sulfonamide Antibiotics) Allergy (Verified 01/16/18 06:54) Contrast media Allergy (Uncoded 01/16/18 06:54) Home Medications: Medication Instructions Recorded Albuterol [Proventil Inhaler HFA 1 - 2 puffs IH Q4H #1 mdi 01/16/18 (*)] predniSONE 20 mg PO DAILY 4 Days tab 01/16/18 Medical Decision Making - Diagnostics Imaging Results: Imaging Impressions Chest X-Ray 01/16/18 07:26 Impression: Stable exam, compared to previous studies in October and December, with no new focal infiltrate. ED Course/Re-evaluation: In the emergency department I discussed possible etiologies with the patient. I answered all her questions. IV was placed. Laboratory studies, EKG and chest x-ray were ordered. Patient was given a DuoNeb for the wheezing on exam Patient states she felt better after receiving the DuoNeb. On recheck she had no wheezing. The sinus rhythm at 73. Left axis deviation. A premature atrial complex. Patient's laboratory studies were unremarkable. White count is normal. Rest of her CBC was normal. Chemistry panel is normal. Lactic acid is negative. D- dimer is negative. Troponin is negative. Patient was given Solu-Medrol 125 mg IV. This was given due to her persistent reported cough and her improvement after receiving the nebulizer. Chest x-ray: Please refer the dictated report. Her x-ray is stable. No focal infiltrate. I am awaiting the Respiratory panel screen. I went rechecked the patient. She states she is feeling better. Patient will be discharged at this point. She will be given a prescription of steroids as well as an inhaler. She is aware that the Respiratory panel is still pending. She will follow up with the primary care physician this week. She was given warnings prior to leaving. She will return with worsening symptoms. Patient took an entire course of azithromycin. I do not feel she needs further antibiotics at this time. Differential Diagnosis: My differential includes but is not limited to influenza, bronchitis, pneumonia , fungal infection, parasitic infection, bacteremia, sepsis, viral illness - Data Points Laboratory Results: Laboratory Results 01/16/18 07:35 01/16/18 07:35 01/16/18 01/16/18 01/16/18 07:35 07:35 07:35 WBC RBC Hgb Hct MCV MCH MCHC RDW Plt Count MPV Neut % (Auto) Lymph % (Auto) [place] % (Auto) Eos % (Auto) Baso % (Auto) Nucleat RBC Rel Count Absolute Neuts (auto) Absolute Lymphs (auto) Absolute Monos (auto) Absolute Eos (auto) Absolute Basos (auto) Absolute Nucleated RBC Immature Gran % Immature Gran # D-Dimer 0.32 ug/mLFEU ug/mLFEU (0.00-0.50) VBG Lactic Acid 1.0 mmol/L mmol/L (0.7-2.1) Sodium 142 mEq/L mEq/L (135-145) Potassium 4.0 mEq/L mEq/L (3.5-5.2) Chloride 104 mEq/L mEq/L (97-110) Carbon Dioxide 27 mEq/l mEq/l (22-31) Anion Gap 11 mEq/L mEq/L (8-16) BUN 12 mg/dL mg/dL (7-23) Creatinine 0.8 mg/dL mg/dL (0.6-1.0) Estimated GFR > 60 Glucose 84 mg/dL mg/dL (70-100) Calcium 9.2 mg/dL mg/dL (8.5-10.4) Troponin I < 0.012 ng/mL ng/mL (0.000-0.034) NT-Pro-B Natriuret Pep 166 pg/mL pg/mL (0-450) 01/16/18 07:35 WBC 5.52 10^3/uL 10^3/uL (3.80-9.50) RBC 4.31 10^6/uL 10^6/uL (4.18-5.33) Hgb 13.7 g/dL g/dL (12.6-16.3) Hct 40.9 % % (38.0-47.0) MCV 94.9 fL fL (81.5-99.8) MCH 31.8 pg pg (27.9-34.1) MCHC 33.5 g/dL g/dL (32.4-36.7) RDW 14.0 % % (11.5-15.2) Plt Count 234 10^3/uL 10^3/uL (150-400) MPV 9.6 fL fL (8.7-11.7) Neut % (Auto) 54.9 % % (39.3-74.2) Lymph % (Auto) 27.5 % % (15.0-45.0) [place] % (Auto) 14.5 % H % (4.5-13.0) Eos % (Auto) 2.2 % % (0.6-7.6) Baso % (Auto) 0.7 % % (0.3-1.7) Nucleat RBC Rel Count 0.0 % % (0.0-0.2) Absolute Neuts (auto) 3.03 10^3/uL 10^3/uL (1.70-6.50) Absolute Lymphs (auto) 1.52 10^3/uL 10^3/uL (1.00-3.00) Absolute Monos (auto) 0.80 10^3/uL 10^3/uL (0.30-0.80) Absolute Eos (auto) 0.12 10^3/uL 10^3/uL (0.03-0.40) Absolute Basos (auto) 0.04 10^3/uL 10^3/uL (0.02-0.10) Absolute Nucleated RBC 0.00 10^3/uL 10^3/uL (0-0.01) Immature Gran % 0.2 % % (0.0-1.1) Immature Gran # 0.01 10^3/uL 10^3/uL (0.00-0.10) D-Dimer VBG Lactic Acid Sodium Potassium Chloride Carbon Dioxide Anion Gap BUN Creatinine Estimated GFR Glucose Calcium Troponin I NT-Pro-B Natriuret Pep Medications Given: Discontinued Medications Albuterol/Ipratropium (Duoneb) 3 ml IH EDNOW ONE Stop: 01/16/18 07:26 Last Admin: 01/16/18 08:02 Dose: 3 ml Methylprednisolone Sodium Succinate (Solu-Medrol) 125 mg IVP EDNOW ONE Stop: 01/16/18 08:44 Last Admin: 01/16/18 08:59 Dose: 125 mg Departure - Departure Disposition: Home, Routine, Self-Care Clinical Impression: Upper respiratory tract infection Qualifiers: URI type: unspecified viral URI Qualified Code(s): J06.9 - Acute upper respiratory infection, unspecified Condition: Good Instructions: Upper Respiratory Infection (ED) Additional Instructions: Return with increasing shortness of breath, persistent fever, or any other concerns. Call your physician on Wednesday morning to make an appointment for follow-up. You been given a prescription for prednisone and inhaler. This will help with your cough. Referrals: Chaya Carreno MD [Primary Care Provider] - 1-2 days without fail Prescriptions: Albuterol [Proventil Inhaler HFA (*)] 1 - 2 puffs IH Q4H #1 mdi predniSONE 20 mg PO DAILY 4 Days tab
[2018-01-16 07:47] LABS: PLATELET COUNT 234 10^3/uL (150-400)
--- NOTE | 2018-01-16 08:01 | CPEKG ---
Heart Rate: 73 RR Interval: 822 P-R Interval: 176 QRSD Interval: 104 QT Interval: 412 QTC Interval: 454 P [place]: 87 QRS [place]: -33 T Wave [place]: 55 EKG Severity - BORDERLINE ECG - EKG Impression: SINUS RHYTHM EKG Impression: ATRIAL PREMATURE COMPLEX EKG Impression: PROBABLE LEFT ATRIAL ABNORMALITY EKG Impression: LEFT AXIS DEVIATION Electronically Signed By: Katey Krishnamurthy 16-Jan-2018 14:45:50
[2018-01-16 08:43] VITALS: BP 135/62
[2018-01-16] MEDS ORDERED: methylPREDNISolone SOD SUCC 125 MG/2 ML VIAL IVP ONE (08:43)
== END 2018-01-16 09:22 | disposition home or self-care (01) ==
DX: J06.9 Acute upper respiratory infection, unspecified (principal)
CPT/HCPCS: 71046; 93005; 96374; 99285; J2930

== ENCOUNTER → 2018-02-18 | Outpatient (CLI) | payer OTHER | LOC: FIMAGING 07:19 | PROVIDERS: ATTEND Internal Medicine Critical Care Medicine | DX: R91.8 Other nonspecific abnormal finding of lung field (principal) ==